=== PATIENT | male | born 1995 | race Caucasian/White ===

== ENCOUNTER 2019-01-16 13:48 | Outpatient (CLI) | payer BC ==
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
== END 2019-01-16 13:49 | disposition home or self-care (01) ==
LOC: TBSIIMAG 13:48
PROVIDERS: ATTEND Neurological Surgery
DX: S22.079A Unspecified fracture of T9-T10 vertebra, initial encounter for closed fracture (principal); S32.009A Unspecified fracture of unspecified lumbar vertebra, initial encounter for closed fracture
CPT/HCPCS: 72072

== ENCOUNTER 2019-05-17 11:11 | Outpatient (CLI) | payer BC ==
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
== END 2019-05-17 11:12 | disposition home or self-care (01) ==
LOC: TBSIIMAG 11:11
PROVIDERS: ATTEND Neurological Surgery
DX: S22.079D Unspecified fracture of T9-T10 vertebra, subsequent encounter for fracture with routine healing (principal); S32.009D Unspecified fracture of unspecified lumbar vertebra, subsequent encounter for fracture with routine healing
CPT/HCPCS: 72070